=== PATIENT | male | born 1975 | race Caucasian/White ===

== ENCOUNTER 2021-01-26 01:04 | Day surgery (SDC) | payer OTHER, SELFPAY ==
[2021-01-12 09:24] VITALS: BMI 27.8
--- NOTE | 2021-01-24 13:20 | PM.HPGS ---
History of Present Illness History of Present Illness Consent: Risks, benefits, and alternatives have been discussed and questions answered. Patient agrees to proceed with procedure. Chief complaint: neoplasm screening Narrative: Luca Membreno is a 45 year old male referred for colon cancer screening. Review of Systems Review of Systems: All systems reviewed & are unremarkable except as noted in HPI and below PMFSH Past Medical History Medical History Allergies HSV-1 (herpes simplex virus 1) infection Family History Family History Father Diabetes mellitus Social History Social History Smoking status: Never smoker Alcohol intake: current Drinks per week: 8 Substance use type: does not use Living arrangements: with family Spiritual care concerns: No Meds Home Medications and Allergies Home Medications Medication Instructions Recorded Confirmed Type ascorbic acid (vitamin C) [Vitamin 500 mg PO DAILY 01/26/21 01/26/21 History C] multivitamin 1 tablet PO DAILY 01/26/21 01/26/21 History Allergies Allergy/AdvReac Type Severity Reaction Status Date / Time No Known Allergies Allergy Verified 01/26/21 09:11 Exam Resp: Auscultation: clear to auscultation bilaterally Cardio: Rate: regular rate Rhythm: regular rhythm GI: GI Palp: Yes Soft to palpation and No Tenderness to palpation present (GI) Assessment and Plan Assessment and plan (1) Screening for colon cancer: Code(s): Z12.11 - Encounter for screening for malignant neoplasm of colon Status: Acute Assessment and Plan: Colonoscopy with possible biopsy or polypectomy or cautery or injection of substances.
[2021-01-26 09:11] VITALS: BP 127/70; PULSE 62; RESP 16; TEMP 35.6; O2SAT 97; BMI 28.0
[2021-01-26] MEDS: LACTATED RINGERS 1,000 ML 150 ML IV CONT (09:24)
--- NOTE | 2021-01-26 09:33 | WPDANESEPPF ---
Anes - Initial Pre Proc Eval Procedure: Operation Date: 01/26/21 10:00 Proposed Procedures p Screening Colonoscopy - Bucky Harrison MD Date/Time: 01/26/21 09:33 Surgeon: Bucky Harrison MD Pre Op Diagnosis: neoplasm screening Patient Data Age: 45 Gender: M Height: 1.83 m Weight: 93.7 kg Last Vital Signs Temp 35.6 C L 01/26/21 09:11 Pulse 62 01/26/21 09:11 Resp 16 01/26/21 09:11 BP 127/70 01/26/21 09:11 Pulse Ox 97 01/26/21 09:11 Allergies Allergy/AdvReac Type Severity Reaction Status Date / Time No Known Allergies Allergy Verified 01/26/21 09:11 Home Medications Medication Instructions Recorded Confirmed Type ascorbic acid (vitamin C) [Vitamin 500 mg PO DAILY 01/26/21 01/26/21 History C] multivitamin 1 tablet PO DAILY 01/26/21 01/26/21 History Patient hx anesthesia problems: none Family hx anesthesia problems: none Results Review: All pre-operative results and documents have been reviewed as part of the pre-operative evaluation. [facility] Past Medical History Medical History Allergies HSV-1 (herpes simplex virus 1) infection Family History Family History Father Diabetes mellitus Social History Social History Smoking status: Never smoker Alcohol intake: current Drinks per week: 8 Substance use type: does not use Living arrangements: with family Spiritual care concerns: No Anes - Eval Final PreProcedure Day of Procedure 01/26/21 09:33 Patient weight: normal Heart: regular rate and rhythm Lungs: clear to auscultation Airway: Mallampati scale class 1 Neurological: alert and oriented Last oral intake: >/= 8 hours ASA classification: I Emergent: no Anesthetic plan: proceed Anesthesia type and monitoring: general GIVS and standard monitoring Results Review: All pre-operative results and documents have been reviewed as part of the pre-operative evaluation. Informed Consent: The patient's anesthetic plan and its attendant risks and benefits were discussed with the patient/family/POA. Questions were solicited and answers provided to the satisfaction of the patient/family/POA.
[2021-01-26 10:02] VITALS: BP 86/55; PULSE 54; RESP 19; O2SAT 92
[2021-01-26 10:12] VITALS: BP 95/64; PULSE 47; RESP 20; O2SAT 97
[2021-01-26 10:22] VITALS: BP 109/71; PULSE 48; RESP 17; O2SAT 100
== END 2021-01-26 10:32 | disposition home or self-care (01) ==
PROVIDERS: PCP Internal Medicine; Visit Provider Internal Medicine Gastroenterology
PROC: 0DJD8ZZ Inspection of Lower Intestinal Tract, Via Natural or Artificial Opening Endoscopic (ICD-10-PCS; CPT 45378; principal; 2021-01-26 10:00)
DX: Z12.11 Encounter for screening for malignant neoplasm of colon (principal)
CPT/HCPCS: 45378; J2704; J7120